=== PATIENT | male | born 1990 | race African-American/Black ===

== ENCOUNTER 2019-12-20 20:25 | Emergency (ER) | payer OTHER, SELFPAY ==
--- NOTE | ~2019-12-20 | XR_ITS ---
EXAMINATION: XR ankle RT min 3V EXAM DATE: 12/20/2019 21:24 INDICATION: Initial encounter following injury, with pain of the right ankle. TECHNIQUE: Right ankle frontal, lateral and oblique projections obtained and reviewed. There is no p rior study for comparison. FINDINGS: There is collapsed talar right dome, with sclerosis and also subchondral cystic change, ad vanced arthritis of the ankle joint, likely sequela from prior fractures, talar avascular necrosis. P robable old distal fibular fracture. There may have been hardware that was removed and/or infected, c hronic osteomyelitis. Please correlate with history. There is no acute fracture line identified today . There is loss of bone density to the tibial distal diaphysis. IMPRESSION: Advanced right ankle osteoarthritis likely secondary to prior fractures, evidence of prio r hardware, talar avascular necrosis and possibly sequela from chronic osteomyelitis. Reviewed, dictated and finalized at location A. IMPRESSION: Advanced right ankle osteoarthritis likely secondary to prior fract ures, evidence of prior hardware, talar avascular necrosis and possibly sequela from chronic osteomyelitis.
--- NOTE | ~2019-12-20 | XR_ITS ---
EXAMINATION: XR hip RT min 3V w AP pelvis EXAM DATE: 12/20/2019 21:24 INDICATION: Initial encounter following injury, with pain of the right hip. TECHNIQUE: Right hip frontal, crosstable lateral and 'frog-leg' projections for interpretation. Front al projection pelvis. There is no prior study for comparison. FINDINGS: Smooth right hip femoral head contour, no radiographic evidence of avascular necrosis. The re are no acute fractures or dislocations identified. There is no subcutaneous gas. The soft tissue is unremarkable. There is a right femoral intramedullary lang bridging healed mid femoral fracture. IMPRESSION: 1. Pelvis, right hip exam without acute osseous findings. Reviewed, dictated and finalized at location A.
--- NOTE | ~2019-12-20 | XR_ITS ---
EXAMINATION: XR knee RT min 4V EXAM DATE: 12/20/2019 21:25 INDICATION: Initial encounter following injury, with pain of the right knee. TECHNIQUE: Right knee frontal, crosstable lateral, orthogonal oblique projections for interpretation . There is no prior study for comparison. FINDINGS: No evidence osteochondral defect or joint body in the right knee joint. There are no acut e fractures or dislocations identified. There is no subcutaneous gas. There is small joint effusion . There is right femoral intramedullary lang, supporting screws bridging a mid femoral fracture which has healed. IMPRESSION: 1. Right knee exam without acute osseous findings. 2. Small joint effusion. Reviewed, dictated and finalized at location A.
[2019-12-20 20:27] VITALS: BP 128/69; PULSE 77; RESP 20; TEMP 36.4; O2SAT 100
--- NOTE | 2019-12-20 20:59 | ED.LOWEXIN ---
HPI - Extremity Injury (Lower) General Chief Complaint: Extremity Injury, Lower <Lilliam Thao PA-C - Last Filed: 12/20/19 22:06> Stated Complaint: fall/ lower extremity injury <Lilliam Thao PA-C - Last Filed: 12/20/19 22:06> Time Seen by Provider: 12/20/19 20:27 <Lilliam Thao PA-C - Last Filed: 12/20/19 22:06> Source: patient <Lilliam Thao PA-C - Last Filed: 12/20/19 22:06> Mode of arrival: ambulatory <Lilliam Thao PA-C - Last Filed: 12/20/19 22:06> Limitations: no limitations <Lilliam Thao PA-C - Last Filed: 12/20/19 22:06> History of Present Illness HPI Narrative: This is a 29 year old male that presents to the ER for a fall today with right leg pain. Reports he slipped and fell and landed on his right side. Denies hitting his head or loss of consciousness. Reports a history of injury to this leg with hardware in the knee and ankle. Reports pain is worse with movement and weight bearing. Relieved with rest. Denies back pain, numbness, weakness or decreased ROM. <Lilliam Thao PA-C - Last Filed: 12/20/19 22:06> Review of Systems Review of Systems: Narrative: CONSTITUTIONAL: Denies fever MUSCULOSKELETAL: Reports joint pain and myalgia. Denies back pain NEUROLOGIC: Denies numbness, or weakness. <Lilliam Thao PA-C - Last Filed: 12/20/19 22:06> All systems reviewed & are unremarkable except as noted in HPI and below <Lilliam Thao PA-C - Last Filed: 12/20/19 22:06> [facility] Past Medical History Medical History: Medical History (Updated 12/21/19 @ 00:00 by Christine Saxena) No active medical problems <Lilliam Thao PA-C - Last Filed: 12/20/19 22:06> Social History Social History: Social History (Updated 12/20/19 @ 21:17 by Lilliam Thao PA-C) Alcohol intake: current <Lilliam Thao PA-C - Last Filed: 12/20/19 22:06> Exam Narrative: Exam Narrative: GENERAL: Well-appearing, well-nourished, and in no acute distress. HEAD: Normocephalic, atraumatic. EYES: PERRLA and EOMI. ENT: Nares clear, no rhinorrhea or epistaxis. Mucous membranes moist. Oropharynx without tonsillar hypertrophy exudate or other lesions. Bilateral TMs pearly bush non-bulging NECK: Supple. No adenopathy or masses. No midline spinal tenderness CHEST: Clear to auscultation. No respiratory distress. No wheezes rales or rhonchi HEART: Regular rate and rhythm. No murmur heard. Normal peripheral pulses. BACK: No midline spinal tenderness EXTREMITIES: Normal range of motion. No edema or obvious deformity. Strength equal in bilateral upper and lower extremities SKIN: Warm, dry, no rash. NEURO: No focal deficits. Alert and oriented x3. Cranial nerves II through XII grossly intact PSYCH: Normal mood and affect <Lilliam Thao PA-C - Last Filed: 12/20/19 22:06> Course Vital Signs Vital signs: Vital Signs Temperature 36.4 C L 12/20/19 20:27 Pulse Rate 77 12/20/19 20:27 Respiratory Rate 20 12/20/19 20:27 Blood Pressure 128/69 12/20/19 20:27 Pulse Oximetry 100 12/20/19 20:27 Temperature 36.8 C 12/20/19 22:17 Pulse Rate 80 12/20/19 22:17 Respiratory Rate 19 12/20/19 22:17 Blood Pressure 135/79 12/20/19 22:17 Pulse Oximetry 100 12/20/19 22:17 <Lilliam Thao PA-C - Last Filed: 12/20/19 22:06> Vital Signs Temperature 36.4 C L 12/20/19 20:27 Pulse Rate 77 12/20/19 20:27 Respiratory Rate 20 12/20/19 20:27 Blood Pressure 128/69 12/20/19 20:27 Pulse Oximetry 100 12/20/19 20:27 Temperature 36.8 C 12/20/19 22:17 Pulse Rate 80 12/20/19 22:17 Respiratory Rate 19 12/20/19 22:17 Blood Pressure 135/79 12/20/19 22:17 Pulse Oximetry 100 12/20/19 22:17 <Flex Bailey MD - Last Filed: 12/21/19 04:18> MDM - Extremity Injury (Lower) MDM Narrative Medical decision making narrative: Patient presents the emergency department for right leg pain after a fall today. Patient's kamilah
[2019-12-20 22:17] VITALS: BP 135/79; PULSE 80; RESP 19; TEMP 36.8; O2SAT 100
== END 2019-12-20 22:18 | disposition home or self-care (01) ==
PROVIDERS: Emergency Provider Emergency Medicine; PCP Physician Assistant
DX: M25.561 Pain in right knee (principal); M25.571 Pain in right ankle and joints of right foot; M19.071 Primary osteoarthritis, right ankle and foot; W01.0XXA Fall on same level from slipping, tripping and stumbling without subsequent striking against object, initial encounter
CPT/HCPCS: 73502; 73564; 73610; 99284

== ENCOUNTER 2020-01-05 09:42 | Emergency (ER) | payer OTHER, SELFPAY ==
[2020-01-05] VITALS (10 sets, daily range): BP systolic 117–135; BP diastolic 84–91; PULSE 59–74; RESP 16–24; TEMP 36.5; O2SAT 96–97
--- NOTE | ~2020-01-05 | CT_ITS ---
EXAMINATION: CTA chest PE protocol DATE: 01/05/2020 13:09 INDICATION: Dyspnea TECHNIQUE: Computed tomography (CT) pulmonary angiogram of the chest was performed with 100 mL Omnipa que-350 intravenous contrast. Additional 3D reconstructions utilizing coronal maximum intensity proje ction (MIP) were performed. Automated exposure control and iterative reconstruction technique were em ployed. The dose-length product was 545.57 mGy-cm. COMPARISON: None FINDINGS: Excellent contrast opacification of the pulmonary arteries. There is mild streak artifact from dense contrast in the superior vena cava and right atrium. Minimal scattered respiratory motion artifact wh ich does not significantly limit evaluation no pulmonary embolism. There a few peripheral blebs at th e posterior right apex. Mild atelectasis in the posterior basilar right lower lobe. At the inferior l ingula. No pneumonia, pulmonary edema, pleural effusion or pneumothorax. Heart size is normal. No per icardial or pleural effusion. Thoracic aorta is normal in caliber with no dissection. No pathological ly enlarged thoracic lymphadenopathy. Mild bilateral gynecomastia. High attenuation sludge versus gal lstones in the dependent aspect of the normal-appearing gallbladder. No pericholecystic inflammatory change to suggest acute cholecystitis. No intra or extra hepatic biliary ductal dilation. Bones are u nremarkable. IMPRESSION: 1. Mild bibasilar atelectasis. No pulmonary embolism or other acute cardiopulmonary disease. 2. Sludge versus gallstones layering the dependent normal-appearing gallbladder. Reviewed, dictated and finalized at location A. IMPRESSION: 1. Mild bibasilar atelectasis. No pulmonary embolism or other acute cardiopulmo nary disease. 2. Sludge versus gallstones layering the dependent normal-appearing gallbladder .
--- NOTE | ~2020-01-05 | XR_ITS ---
EXAMINATION: XR chest 1V 01/05/2020 10:08 INDICATION: Dyspnea. Shortness of breath. Body aches. PROCEDURE: AP view of the chest COMPARISON: No prior studies for comparison. FINDINGS: The lungs are clear. The cardiomediastinal silhouette is within normal limits. There are no pleural effusions. There is no pneumothorax suspected. IMPRESSION: 1: NO ACUTE CARDIOPULMONARY DISEASE. Reviewed, dictated and finalized at location A.
--- NOTE | ~2020-01-05 | CT_ITS ---
EXAMINATION: CT brain wo con DATE: 01/05/2020 10:07 INDICATION: Dizziness TECHNIQUE: Computed tomography (CT) of the head was performed without intravenous contrast. The dose- length product was 605.33 mGy-cm. Automated exposure control and iterative reconstruction technique w ere employed. COMPARISON: None FINDINGS: No acute intracranial hemorrhage, infarction, mass or mass effect. No ventriculomegaly or m idline shift. Basilar cisterns are patent. Normal bush-white differentiation. Mild mucosal thickening of the maxillary, sphenoid and ethmoid sinuses. Small mastoid effusions. No depressed skull fracture s. Midline sagittal images are unremarkable. IMPRESSION: 1. No acute intracranial abnormality. 2: Mild sinus disease. Reviewed, dictated and finalized at location A.
--- NOTE | 2020-01-05 09:55 | ED.GENADULT ---
HPI - General Adult General Chief complaint: Unspecified Stated complaint: sob, body aches Time Seen by Provider: 01/05/20 09:48 Source: RN notes reviewed History of Present Illness HPI narrative: Patient presents emergency department from home for shortness of breath. Patient states he awoke with shortness of breath this morning. He states he then symptoms got up to use the restroom and felt dizzy and lightheaded. He denies any syncopal episode. He states he has generalized fatigue he denies any fevers or chills sore throat abdominal pain nausea vomiting or any other symptoms. Denies any shortness of breath currently laying in bed Related Data Allergies Allergy/AdvReac Type Severity Reaction Status Date / Time No Known Allergies Allergy Verified 01/05/20 09:52 Review of Systems Review of Systems: Narrative: Gen.: Denies fevers or chills Eyes: Denies eye pain or visual change ENT: Denies congestion Respiratory: Reports shortness of breath CV: Denies chest pain or palpitations GI: Denies abdominal pain nausea, emesis or diarrhea Musculoskeletal: Denies back pain or muscle pain Neuro: Dizziness denies numbness or tingling Skin: Denies rash Except as documented, all other systems reviewed and negative [facility] Past Medical History Medical History No active medical problems Social History Social History (Updated 01/05/20 @ 09:56 by Mt Guerrero DO) Smoking packs per day: 0.5 Smoking cigarettes per day: 10.0 Alcohol intake: current Exam Narrative: Exam Narrative: APPEARANCE: No acute distress, nontoxic, resting in bed EYES: EOMI, Tina HEENT: Normocephalic, atraumatic, OMM RESPIRATORY: No respiratory distress Clear to auscultation bilaterally with no rhonchi wheezing or rales. CARDIOVASCULAR: Regular rate and rhythm without murmurs rubs or gallops. ABDOMINAL: Soft, nontender, nondistended, no rebound or guarding MUSCULOSKELETAl: Moves all extremities. No clubbing, cyanosis or edema. NEURO: Awake and alert x 3. Following commands, speech normal, no focal deficits SKIN:: Warm, dry. No rashes lesions or abrasions PSYCHIATRIC: Normal affect/mood, Course Course Emergency Course: Patient able to get up and ambulate in the emergency department no difficulty. No dizziness Discussed with patient results of workup and diagnosis. Discussed need for follow-up with primary care, proper use of medication, and reasons to return to the emergency department. Patient understands and agrees to current treatment plan. Patient states he is currently on amoxicillin for a bad tooth that is post be being pulled tomorrow. I did notify the patient about his gallstones and need to follow-up as an outpatient. We did discuss I will COVID swab at this time patient be on self isolation until return of results Vital Signs Vital signs: Vital Signs Temperature 97.7 F 01/05/20 09:46 Pulse Rate 67 01/05/20 09:46 Respiratory Rate 18 01/05/20 09:46 Blood Pressure 135/84 01/05/20 09:46 Pulse Oximetry 96 01/05/20 09:46 Temperature 97.7 F 01/05/20 09:46 Pulse Rate 60 01/05/20 12:05 Respiratory Rate 20 01/05/20 12:05 Blood Pressure 127/86 01/05/20 12:05 Pulse Oximetry 97 01/05/20 12:05 Medical Decision Making MDM Narrative Medical decision making narrative: Patient has dyspnea of unclear etiology. No wheezing on clinical exam. Low risk well score, PE is felt unlikely. No abnormalities noted on chest x-ray. Patient?s EKG is without high-risk changes. Oxygen saturations are normal. Patient is felt to be a reasonable candidate for additional evaluation as an outpatient. Vital Signs Vital Signs: Vital Signs Temperature 97.7 F 01/05/20 09:46 Pulse Rate 67 01/05/20 09:46 Respiratory Rate 18 01/05/20 09:46 Blood Pressure 135/84 01/05/20 09:46 Pulse Oximetry 96 01/05/20 09:46 Temperature 97.7 F 01/05/20 09:46 Pulse Rate 60
[2020-01-05] MEDS: SODIUM CHLORIDE 0.9% IV 1,000 ML 999 ML IV CONT (09:57)
--- NOTE | 2020-01-05 09:58 | ECG_ITS ---
Measurements Intervals [place] Rate: 62 P: 16 NM: 143 QRS: 26 QRSD: 98 T: 30 QT: 403 QTc: 411 Interpretive Statements SINUS RHYTHM ST ELEVATION IN DIFFUSE LEADS- PROBABLY EARLY REPOLARIZATION BASELINE ARTIFACT- I, II, III, AVR, AVL, AVF, V1 BORDERLINE ECG Electronically Signed On 01-05-2020 10:06:50 CDT by Russell Gee D.O.
[2020-01-05 10:04] LABS: Basophils Percent Auto 0.6 % (0.2-1.2); Eosinophils Absolute Auto 0.2 K/mm3 (0-0.3); Eosinophils Percent Auto 4.2 % (0-4.4); Hematocrit 43.3 % (42.0-52.0); Hemoglobin 15.3 g/dL (14.0-18.0); Immature Granulocyte Absolute 0.01 K/mm3 (0.00-0.031); Immature Granulocyte Percent A 0.2 % (0-0.5); Lymphocytes Absolute Auto 1.49 K/mm3 (0.9-3.2); Lymphocytes Percent Auto 29.4 % (18.3-44.2); Mean Corpuscular HGB Conc 35.3 g/dl (32-36); Mean Corpuscular Hemoglobin 33.3 pg (26-34); Mean Corpuscular Volume 94.3 fl (80-100); Mean Platelet Volume 9.4 fl (7.4-10.4); Monocytes Absolute Auto 0.7 K/mm3 (0.1-0.6); Neutrophils Absolute Auto 2.6 K/mm3 (1.3-6.7); Neutrophils Percent Auto 51.6 % (45.5-73.1); Platelet Count Result 302 k/mm3 (150-375); Red Blood Count 4.59 M/mm3 (4.6-6.20); Red Cell Distribution Width 11.2 % (11.5-14.5); White Blood Count 5.1 K/mm3 (4.5-10.0)
--- NOTE | 2020-01-05 10:04 | PC.NURSE ---
Pt to imaging
--- NOTE | 2020-01-05 10:18 | PC.NURSE ---
Orthos taken. Urinal given to patient for urine sample
[2020-01-05 10:21] LABS: Alanine Aminotransferase 21 U/L (4-50); Albumin Level 5.2 g/dL (3.5-5.1); Alkaline Phosphatase 89 U/L (38-126); Aspartate Amino Transferase 34 U/L (17-59); Blood Urea Nitrogen 24 mg/dL (9-20); Calcium 9.5 mg/dL (8.4-10.2); Carbon Dioxide 28 mmol/L (22-30); Chloride 95 mmol/L (98-107); Estimated CRCL calculation 129 ml/min; Estimated Glomerular Filt Rate > 60; Glucose 113 mg/dL (75-110); INR 1.1; Potassium 4.1 mmol/L (3.4-5.0); Prothrombin Time 13.5 Seconds (11.1-14.7); Sodium 132 mmol/L (137-145)
[2020-01-05 10:22] LABS: Partial Thromboplastin Time 32.6 SECONDS (22.3-36.8)
[2020-01-05 10:28] LABS: D Dimer 0.27 ug/mL (<0.48)
[2020-01-05 10:33] LABS: Troponin I < 0.012 ng/mL (0.000-0.034)
[2020-01-05 10:34] LABS: Add Urine Microscopic? YES; Appearance Urine Clear (Clear); Bilirubin Urine Negative (Negative); Blood Urine 1+ (Negative); Color Urine Yellow (Yellow); Glucose Urine UA Negative (Negative); Ketones Urine Negative (Negative); Leukocyte Esterase Ur Negative LEU/UL (Negative); Nitrate Urine Negative (Negative); Protein Urine Negative (Negative); RBC Urine 0-2 /hpf (0-2); Specific Grav Ur 1.014 (1.001-1.035); Urobilinogen Urine Negative mg/dL (<2.0); WBC Urine 0-3 /hpf
[2020-01-05 11:58] LABS: Creatine Kinase 357 U/L (55-170)
[2020-01-05 13:39] LABS: Troponin I < 0.012 ng/mL (0.000-0.034)
[2020-01-06 12:59] LABS: SARS-CoV-2 RNA PCR Negative
== END 2020-01-05 14:18 | disposition home or self-care (01) ==
PROVIDERS: Emergency Provider Emergency Medicine
DX: R06.00 Dyspnea, unspecified (principal); Z20.828 Contact with and (suspected) exposure to other viral communicable diseases; J32.9 Chronic sinusitis, unspecified; F17.210 Nicotine dependence, cigarettes, uncomplicated; R94.31 Abnormal electrocardiogram [ECG] [EKG]; R93.2 Abnormal findings on diagnostic imaging of liver and biliary tract
CPT/HCPCS: 36415; 70450; 71045; 71275; 80053; 81001; 82550; 84484; 85025; 85380; 85610; 85730; 87635; 93005; 96360; 99284; C9803; J7030; Q9967; U0003

== ENCOUNTER 2020-03-14 09:54 | Emergency (ER) | payer OTHER, SELFPAY ==
[2020-03-14 09:58] VITALS: BP 145/89; PULSE 49; RESP 15; TEMP 36.8; O2SAT 97
[2020-03-14] MEDS: KETOROLAC (*BKC) 60 MG/2 ML VIAL IM (10:33)
--- NOTE | 2020-03-14 11:23 | ED.GENADULT ---
HPI - General Adult General Chief complaint: Neuro Symptoms/Deficit <Robert Rivas PA-C - Last Filed: 03/14/20 11:35> Stated complaint: left arm numb <Robert Rivas PA-C - Last Filed: 03/14/20 11:35> Time Seen by Provider: 03/14/20 10:10 <Robert Rivas PA-C - Last Filed: 03/14/20 11:35> Source: patient and family <Robert Rivas PA-C - Last Filed: 03/14/20 11:35> Mode of arrival: ambulatory <Robert Rivas PA-C - Last Filed: 03/14/20 11:35> Limitations: no limitations <Robert Rivas PA-C - Last Filed: 03/14/20 11:35> History of Present Illness HPI narrative: Patient is a 30-year-old male who presents to emergency department with 2 days duration of numbness to the first through second digits of the left upper extremity woke with the symptoms yesterday and then again today patient notes yesterday involve the hand has numbness and today he had numbness and discomfort to the elbow. Patient denies injury or trauma does have a job that requires frequent use of the upper extremities. Patient denies any neck pain headache lightheadedness dizziness or other focal neurologic deficits or complaint <Robert Rivas PA-C - Last Filed: 03/14/20 11:35> Related Data Allergies/adverse reactions: Allergies Allergy/AdvReac Type Severity Reaction Status Date / Time No Known Allergies Allergy Verified 03/14/20 10:03 <Robert Rivas PA-C - Last Filed: 03/14/20 11:35> Review of Systems Review of Systems: All systems reviewed & are unremarkable except as noted in HPI and below <Robert Rivas PA-C - Last Filed: 03/14/20 11:35> PMF[facility] Past Medical History Medical History: Medical History No active medical problems <Robert Rivas PA-C - Last Filed: 03/14/20 11:35> Social History Social History: Social History Smoking packs per day: 0.5 Smoking cigarettes per day: 10.0 Alcohol intake: current Gender identity (if verbalized by the patient): Male <Robert Rivas PA-C - Last Filed: 03/14/20 11:35> Exam Narrative: Exam Narrative: GENERAL: Well-appearing, well-nourished, and in no acute distress. HEAD: Normocephalic, atraumatic. EYES: PERRLA and EOMI. ENT: Nares clear, no rhinorrhea or epistaxis. Mucous membranes moist. NECK: Supple. No adenopathy or masses. No carotid bruits or JVD CHEST: Clear to auscultation. No respiratory distress. No wheezes rales or rhonchi HEART: Regular rate and rhythm. No murmur heard. EXTREMITIES: Normal range of motion. No edema. No cervical spine tenderness to palpation. Normal range of motion of the left upper extremity to include the shoulder elbow wrist and hand and fingers neurovascularly intact. Capillary refill less than 2 seconds. No tenderness of the hand with normal range of motion and strength SKIN: Warm, dry, no rash. NEURO: No focal deficits. Alert and oriented x3. Cranial nerves II through XII grossly intact. PSYCH: Normal mood and affect. <DUSTY Guzman Last Filed: 03/14/20 11:35> Course Vital Signs Vital signs: Vital Signs Temperature 98.3 F 03/14/20 09:58 Pulse Rate 49 L 03/14/20 09:58 Respiratory Rate 15 03/14/20 09:58 Blood Pressure 145/89 H 03/14/20 09:58 Pulse Oximetry 97 03/14/20 09:58 Temperature 98.3 F 03/14/20 09:58 Pulse Rate 49 L 03/14/20 09:58 Respiratory Rate 15 03/14/20 09:58 Blood Pressure 145/89 H 03/14/20 09:58 Pulse Oximetry 97 03/14/20 09:58 <Robert Rivas PA-C - Last Filed: 03/14/20 11:35> Vital Signs Temperature 98.3 F 03/14/20 09:58 Pulse Rate 49 L 03/14/20 09:58 Respiratory Rate 15 03/14/20 09:58 Blood Pressure 145/89 H 03/14/20 09:58 Pulse Oximetry 97 03/14/20 09:58 Temperature 98.3 F 03/14/20 09:58 Pulse Rate 49 L 03/14/20 09:58 Respiratory Rate 15
== END 2020-03-14 11:39 | disposition home or self-care (01) ==
PROVIDERS: Emergency Provider Emergency Medicine
DX: R20.2 Paresthesia of skin (principal)
CPT/HCPCS: 96372; 99283; J1885

== ENCOUNTER 2021-02-27 05:41 | Emergency (ER) | payer SELFPAY ==
[2021-02-27] VITALS (12 sets, daily range): BP systolic 111–138; BP diastolic 67–82; PULSE 53–66; RESP 16–21; TEMP 36.6; O2SAT 95–98
--- NOTE | ~2021-02-27 | XR_ITS ---
EXAMINATION: XR chest 2V DATE: 02/27/2021 08:09 INDICATION: Cough TECHNIQUE: PA and lateral views of the chest are obtained. COMPARISON: 01/05/2020 FINDINGS: The lungs are free of acute opacities. There is no pleural effusion or pneumothorax. The ca rdiomediastinal silhouette is normal. The visualized bones and soft tissues are unremarkable. IMPRESSION: 1. No acute cardiopulmonary abnormality. Reviewed, dictated and finalized at location A.
--- NOTE | 2021-02-27 07:37 | PC.NURSE ---
Assumed care. Sleeping. In no distress.
--- NOTE | 2021-02-27 08:56 | ED.URI ---
HPI - URI/Sore Throat General Chief Complaint: Upper Respiratory Infection Stated Complaint: flu like symptoms Time Seen by Provider: 02/27/21 07:11 Source: patient Mode of arrival: ambulatory Limitations: no limitations History of Present Illness HPI Narrative: Patient is a30 year old male who presents with complaints of sore throat, cough and congestion x 2 weeks. He denies fever, chills and body aches. Patient denies nausea, vomiting or diarrhea. Patient is not vaccinated for Covid. Patients significant other works in a health care setting. Patient denies chest pain or shortness of breath. Patient has no significant medical history. MD elicited complaint: cough, sore throat and nasal congestion Related Data Allergies Allergy/AdvReac Type Severity Reaction Status Date / Time No Known Allergies Allergy Verified 03/14/20 10:03 Review of Systems Review of Systems: CONSTITUTIONAL: Denies fever, chills, or sweats. EYES: Denies visual changes, redness, or discharge. ENT: Reports congestion and sore throat. CARDIOVASCULAR: Denies chest pain, palpitations, or edema. RESPIRATORY: Reports cough, denies dyspnea. GASTROINTESTINAL: Denies abdominal pain, nausea, vomiting, or diarrhea. GENITOURINARY: Denies dysuria or hematuria. SKIN: Denies rash or itching. MUSCULOSKELETAL: Denies back pain, joint pain, or myalgia. NEUROLOGIC: Denies headache, numbness, dizziness, or weakness. PSYCHIATRIC: Denies anxiety or depression. [facility] Past Medical History Medical History (Updated 02/27/21 @ 09:24 by AMAYA Fuentes) No active medical problems Social History Social History Smoking packs per day: 0.5 Smoking cigarettes per day: 10.0 Alcohol intake: current Gender identity (if verbalized by the patient): Male Comments At the time of signature, I have reviewed and agree with nursing past medical, surgical, social, and family history unless otherwise noted. Please see nursing chart for further information. There is no relevant family history pertinent to the presenting complaint. Exam Narrative: GENERAL: Well-appearing, well-nourished, and in no acute distress. HEAD: Normocephalic, atraumatic. EYES: EOMI. No redness or drainage. Conjunctiva are normal. ENT: Mucous membranes pink and moist. Nares clear. No rhinorrhea. Throat normal. Uvula midline. NECK: AROM. Supple. No lymphadenopathy. CHEST: No respiratory distress. Clear to auscultation. HEART: Regular rate and rhythm. EXTREMITIES: Normal range of motion. No edema. SKIN: Warm, dry, no rash. NEURO: No focal deficits. Alert and oriented x3. Gait steady. PSYCH: Normal affect. No signs of depression or anxiety. Course Vital Signs Vital signs: Vital Signs Temperature 36.6 C 02/27/21 05:51 Pulse Rate 60 02/27/21 05:51 Respiratory Rate 20 02/27/21 05:51 Blood Pressure 124/82 02/27/21 05:51 Pulse Oximetry 97 02/27/21 05:51 Temperature 36.6 C 02/27/21 05:51 Pulse Rate 57 L 02/27/21 07:47 Respiratory Rate 18 02/27/21 07:47 Blood Pressure 111/67 02/27/21 07:47 Pulse Oximetry 98 02/27/21 07:47 Reviewed MDM - URI/Sore Throat MDM Narrative Medical decision making narrative: Chest x-ray is negative for acute cardiopulmonary abnormalities. Rapid strep is negative. Discussed Covid testing with patient. Patient recommended for outpatient testing due to length of symptoms as well as stable vital signs and negative chest x-ray Differential Diagnosis Differential diagnosis: Likely upper respiratory infection, sinusitis, viral infection, bronchitis and other (Covid) Lab Data Labs: Strep Screen Presumptive Negative *(Reference Range: Negative)* Imaging Data Radiologist's impression: ITS Impressions Chest X-Ray 02/27/21 08:49 IMPRESSION: 1. No acute cardiopulmonary abnormality. Critical Care Time Crit
== END 2021-02-27 10:00 | disposition home or self-care (01) ==
PROVIDERS: Emergency Provider Nurse Practitioner
DX: J06.9 Acute upper respiratory infection, unspecified (principal); F17.210 Nicotine dependence, cigarettes, uncomplicated; Z20.822 Contact with and (suspected) exposure to COVID-19
CPT/HCPCS: 71046; 87081; 87880; 99283